=== PATIENT | female | born 1995 | race Two or more races ===

== ENCOUNTER 2017-06-25 09:34 | Emergency (ER) | payer MEDICAID ==
[~2017-06-25] VITALS: Ht 149.9 cm; Wt 54.4 kg
[2017-06-25 09:53] VITALS: BP 134/72
== END 2017-06-25 10:30 | disposition home or self-care (01) ==
LOC: ED 09:34
DX: Z76.0 Encounter for issue of repeat prescription (principal); F32.9 Major depressive disorder, single episode, unspecified; Z86.59 Personal history of other mental and behavioral disorders

== ENCOUNTER 2017-07-08 10:53 | Emergency (ER) | payer MEDICAID ==
[~2017-07-08] VITALS: Ht 149.9 cm; Wt 54.4 kg
[2017-07-08 11:01] VITALS: Ht 149.9 cm; Wt 54.4 kg
[2017-07-08 12:31] LABS: microscopic required? NO
[2017-07-08 12:41] LABS: UA SPECIFIC GRAVITY 1.015 (1.005-1.035); urine erythrocyte NEGATIVE (NEGATIVE)
[2017-07-08 12:45] LABS: BASOPHIL % 0.5 % (0-2); PLATELET COUNT 379 x10^3mcL (130-400); RED CELL DISTRIBUTION WIDTH 13.2 % (11.5-14.5)
[2017-07-08 12:53] LABS: CALCIUM 9.4 mg/dL (8.5-10.1); CARBON DIOXIDE 30.9 mmol/L (21-32); CHLORIDE SERUM 103 mmol/L (98-107); CREATININE SERUM 0.8 mg/dL (0.6-1.0); GFR1 > 60 mL/min; GLUCOSE SERUM 86 mg/dL (74-106); SODIUM SERUM 140 mmol/L (136-145)
[2017-07-08 12:57] LABS: ALBUMIN 4.3 g/dL (3.4-5.0); ALKALINE PHOSPHATASE 64 U/L (46-116); ALT/SGPT 25 U/L (14-59); AST/SGOT 15 U/L (15-37); BILIRUBIN TOTAL 1.6 mg/dL (0.20-1.00); LIPASE 180 IU/L (73-393); TOTAL PROTEIN, SERUM 8.2 g/dL (6.4-8.2)
[2017-07-08 15:27] VITALS: BP 138/75
== END 2017-07-08 15:27 | disposition home or self-care (01) ==
LOC: ED 10:53
PROVIDERS: Specialist
DX: R10.13 Epigastric pain (principal); N89.8 Other specified noninflammatory disorders of vagina; R10.31 Right lower quadrant pain; R11.0 Nausea
CPT/HCPCS: 36415; 87491; 87591